=== PATIENT | female | born 1945 | race American Indian/Alaskan Native ===

== ENCOUNTER 2018-09-26 21:51 | Emergency (ER) | payer MEDICARE, OTHER ==
[2018-09-26 22:08] VITALS: BP 181/75; PULSE 83; RESP 20; TEMP 97.8; O2SAT 99
--- NOTE | 2018-09-26 22:28 | C.PDOC ---
History Of Present Illness Patient complains of right knee pain for 3 days, mostly to back of knee. She reports pain is aching and throbbing worsens with standing and walking. Pain radiates down the leg. She denies any injury, numbness, weakness, swelling. Patient has not taken any pain medicine. Time Seen by Provider: 09/26/18 22:10 Chief Complaint (Nursing): Lower Extremity Problem/Injury History Per: Patient History/Exam Limitations: no limitations Onset/Duration Of Symptoms: Days Current Symptoms Are (Timing): Still Present Severity: Moderate Past Medical History Reviewed: Historical Data, Nursing Documentation, Vital Signs Vital Signs: Last Vital Signs Temp 97.8 F 09/26/18 21:57 Pulse 83 09/26/18 21:57 Resp 20 09/26/18 21:57 BP 181/75 H 09/26/18 21:57 Pulse Ox 99 09/26/18 21:57 - Medical History PMH: Gastritis, HTN, Hypercholesterolemia Family History: States: Unknown Family Hx - Social History Hx Tobacco Use: No Hx Alcohol Use: No Hx Substance Use: No - Immunization History Hx Tetanus Toxoid Vaccination: No Hx Influenza Vaccination: No Hx Pneumococcal Vaccination: No Review Of Systems Except As Marked, All Systems Reviewed And Found Negative. Musculoskeletal: Positive for: Other (knee pain) Physical Exam - Physical Exam Appears: Non-toxic, No Acute Distress Skin: Warm, Dry, No Ecchymosis Head: Atraumatic, Normacephalic Eye(s): bilateral: Normal Inspection Extremity: No Calf Tenderness, Other (Right knee: mild tenderness posterior area and fossa, no swelling to joint, no laxity on stress test, normal ROM but pain with flexion) Extremity: Bilateral: Other (varicose veins) Neurological/Psych: Oriented x3, Normal Speech Gait: Steady ED Course And Treatment O2 Sat by Pulse Oximetry: 99 Medical Decision Making Medical Decision Making: Impression: Right leg pain Plan: Knee Xray, Motrin Progress: Xray viewed by me shows arthritis and possible bakers cyst. discussed results with patient. Patient now asking questions regarding blood clots and varicose veins. Patient has no calf tenderness, erythema or palpable cord; no immediate concern for DVT. There is no photovoltaic testing technician available at this time for further eval. I explain to patient she will need to follow up in the AM to get test done. However I think pain related to arthralgia and weight. I recommend rest and analgesic. Disposition Counseled Patient/Family Regarding: Diagnosis, Need For Followup, Rx Given - Disposition Referrals: Alesia Paulson MD [Staff Provider] - Disposition: HOME/ ROUTINE Disposition Time: 23:00 Condition: STABLE Additional Instructions: Your xray shows changes of arthritis to knee joint and bakers cyst. Recommend resting the knee joint and taking Motrin for pain and inflammation, with food to not upset stomach. Follow up with orthopedic Prescriptions: Ibuprofen [Motrin] 600 mg PO Q12 #30 tab Instructions: Davis's Cyst (DC) - POA Present On Arrival: None - Clinical Impression Clinical Impression: Arthralgia of knee
--- NOTE | 2018-09-27 16:10 | RAD ---
Date of service: 09/26/2018 PROCEDURE: Right Knee Radiographs. HISTORY: pain to knee mostly posterior COMPARISON: None. FINDINGS: BONES: Normal. No fracture. JOINTS: Medial and patellofemoral osteoarthritis. Subchondral sclerosis of medial tibial condyle. Joint space narrowing. No articular erosion. Lateral compartment grossly preserved. JOINT EFFUSION: None. OTHER FINDINGS: None. IMPRESSION: Medial and patellofemoral osteoarthritis.
== END 2018-09-26 23:10 | disposition home or self-care (01) ==
LOC: C.ER 21:51
DX: M25.561 Pain in right knee (principal)